=== PATIENT | male | born 1995 | race Caucasian/White ===

== ENCOUNTER 2016-10-25 11:26 | Emergency (ER) | payer OTHER ==
[~2016-10-25] VITALS: Ht 177.8 cm; Wt 65.0 kg
[2016-10-25 11:28] VITALS: BP 148/89; PULSE 72; RESP 16; TEMP 98.7; O2SAT 100
[2016-10-25] MEDS ORDERED: AMOX500C PO (11:37)
[2016-10-25] MEDS ORDERED: IBUP800T23 PO (11:37)
[2016-10-25] MEDS ORDERED: PERI0.126 SWISH-SPIT (11:37)
[2016-10-25] MEDS ORDERED: MAGICPED SWISH-SPIT (11:37)
--- NOTE | 2016-10-25 11:38 | PD ---
HPI Chief Complaint: Oral / Dental Pain or Problem Time Seen by Provider: 11:33 Travel History International Travel<30 days: No Contact w/Intl Traveler<30days: No Traveled to known affect area: No History of Present Illness HPI 20-year-old male presents to the emergency department complaining of right upper tooth pain since yesterday. Says he has a large cavity in the tooth and probably needs a root canal. He is here on business and will follow up with a dentist when he gets home. He's been taking Tylenol for the pain. Denies fever , vomiting. Has no other medical complaints. No known allergies. No other modifying factors or associated signs and symptoms. PFSH Social History Tobacco Use: No Allergies-Medications (Allergen,Severity, Reaction): Coded Allergies: No Known Allergies (Unverified , 10/25/16) Reported Meds & Prescriptions Reported Meds & Active Scripts Active Peridex Liq (Chlorhexidine Gluconate (Mouth) Liq) 0.12% Soln 15 Ml SWISH-SPIT BID 10 Days Magic Mouthwash Pediatric/Adult Liq (Lidocaine/Diphenhydr/Alum/Mg/Simeth) 60 Ml Susp 5 Ml SWISH-SPIT Q3HR PRN Each 5mL contains: Diphenydramine 4.5mg, Viscous Lidocaine 2% 10mg, Maalox Advanced Regular Strength 2.7ml Ibuprofen 800 Mg Tab 800 Mg PO Q6HR PRN Amoxicillin 500 Mg Cap 500 Mg PO BID 10 Days Review of Systems Except as stated in HPI: all other systems reviewed are Neg Physical Exam Narrative GENERAL: Well-nourished, well-developed male patient, in no acute distress; afebrile, nontoxic-appearing SKIN: Warm and dry. HEAD: Atraumatic. Normocephalic. No facial edema, erythema, tenderness on palpation. No lymphadenopathy. EYES: Pupils equal and round. No scleral icterus. No injection or drainage. ENT: Mucosa pink and moist. Airway patent. MOUTH: Mucous membranes moist, no lesions, tongue and gums appear normal. Multiple dental cavities noted throughout. Tooth #tooth #4 with large dental cavity and with tenderness on palpation. Surrounding gingiva is without erythema, edema, drainage. No obvious abscess noted. NECK: Trachea midline. No lymphadenopathy. CARDIOVASCULAR: Regular rate. RESPIRATORY: No accessory muscle use. GASTROINTESTINAL: Flat. MUSCULOSKELETAL: No obvious deformities. No clubbing. No cyanosis. No edema. NEUROLOGICAL: Awake and alert. Oriented 3. No obvious cranial nerve deficits. Motor grossly within normal limits. Normal speech. PSYCHIATRIC: Appropriate mood and affect; insight and judgment normal. Data Data Last Documented VS Vital Signs Date Time Temp Pulse Resp B/P Pulse Ox O2 Delivery O2 Flow Rate FiO2 10/25/16 11:28 98.7 72 16 148/89 100 Orders Ketorolac Inj (Toradol Inj) (10/25/16 11:45) [facility] Medical Decision Making Medical Screen Exam Complete: Yes Emergency Medical Condition: Yes Medical Record Reviewed: Yes Differential Diagnosis Infected dental cavity, dentalgia, dental abscess, gingivitis Narrative Course 20-year-old male with large dental cavity and dentalgia to tooth #4. No facial edema erythema. Patient is afebrile and nontoxic-appearing. He denies fever, vomiting. Toradol administered in the ER. Patient is here on business and will follow up with his dentist when he gets home. Instructed Patient to follow up with dentist. Amoxicillin, Magic mouthwash, Peridex mouth rinse, ibuprofen prescribed for home. Instructed patient to follow up with primary care provider. Patient verbalizes understanding and agreement with treatment plan. Patient is medically cleared and stable for discharge. Discussed reasons to return to the emergency department. Patient agrees with treatment plan. The patients vital signs are stable and the patient is stable for outpatient follow-up and treatment. Patient discharged home, stable and in no acute distress. Diagnosis Primary Impression: Dentalgia Additional Impression: Dental cavity Referrals: Dentist Primary Care Physician Patient Instructions: Dental Abscess (ED), Dental Caries (ED), General Instructions, Toothache (ED) Additional Instructions: Complete full course of antibiotics Ibuprofen or Tylenol as directed and as needed to reduce pain and inflammation Use Magic mouthwash rinse as directed and as needed to decrease pain Use Peridex as directed for oral hygiene Warm or cool compresses to the affected area Follow-up with dentist Follow-up with primary care provider Return to emergency department immediately with worsening of symptoms Med/Other Pt SpecificInfo: Prescription(s) given Scripts Chlorhexidine Gluconate (Mouth) Liq (Peridex Liq)0.12% Soln15 Ml SWISH-SPIT BID 10 Days Ref 0 Prov:Jackie Roman 10/25/16 Crrkjerqimtqbaq-Ybvqonmep-Ojz-Alum-Simeth Liq (Magic Mouthwash Pediatric/Adult Liq)60 Ml Susp5 Ml SWISH-SPIT Q3HR PRN (PAIN SCALE 1 TO 10) #60 ML Ref 0 Each 5mL contains: Diphenydramine 4.5mg, Viscous Lidocaine 2% 10mg, Maalox Advanced Regular Strength 2.7ml Prov:Jackie Roman 10/25/16 Ibuprofen 800 Mg Pxt080 Mg PO Q6HR PRN (PAIN) #30 TAB Ref 0 Prov:Jackie Roman 10/25/16 Amoxicillin 500 Mg Jlc006 Mg PO BID 10 Days Ref 0 Prov:Jackie Roman 10/25/16 Disposition: 01 DISCHARGE HOME Condition: Stable Jackie Roman Oct 25, 2016 11:38
[2016-10-25] MEDS ORDERED: KETOROLAC TROMETHAMINE 60 MG/2 ML (IM) VIAL IM ONE (11:45)
[2016-10-25 14:33] VITALS: RESP 17
== END 2016-10-25 12:26 | disposition home or self-care (01) ==
LOC: NEPK 11:26
DX: K02.9 Dental caries, unspecified (principal); Z79.899 Other long term (current) drug therapy
CPT/HCPCS: 96372; 99284; J1885